=== PATIENT | female | born 1965 | race African-American/Black ===

== ENCOUNTER 2018-06-26 18:51 | Emergency (ER) | payer OTHER ==
[2018-06-26] MEDS ORDERED: ASPIRIN PO ONE (19:30)
[2018-06-26 20:19] LABS: Mucus,Urine 3+ /HPF
[2018-06-26 20:26] LABS: Basophils # (Auto) 0.1 K/mm3 (0.0-0.1); Basophils % (Auto) 0.9 % (0.0-1.8); Eosinophils # (Auto) 0.1 K/mm3 (0.0-0.4); Eosinophils % (Auto) 1.8 % (0.0-4.3); Hemoglobin 14.1 gm/dl (10.1-14.3); Lymphocytes % (Auto) 26.6 % (13.4-35.0); Mean Corpuscular HGB Conc 33 % (30-34); Mean Corpuscular Hemoglobin 29 pg (28-32); Mean Corpuscular Volume 90 fl (79-97); Monocytes # (Auto) 0.5 K/mm3 (0.0-0.8); Monocytes % (Auto) 6.8 % (0.0-7.3); Platelet Count 335 K/mm3 (140-440); Red Blood Count 4.78 M/mm3 (3.65-5.03); Red Cell Distribution Width 14.4 % (13.2-15.2)
[2018-06-26 20:41] LABS: BUN/Creatinine Ratio 38; Blood Urea Nitrogen 19 mg/dL (7-17); Hemolysis Index 32
[2018-06-26 20:43] LABS: Color,Urine Yellow (Yellow)
[2018-06-26 20:44] LABS: Bilirubin,Urine Negative (Negative); Blood,Urine Small (Negative); Urobilinogen,Urine < 2.0 mg/dL (<2.0)
--- NOTE | 2018-06-26 20:54 | XRay Report ---
FINAL REPORT PROCEDURE: XR CHEST ROUTINE 2V TECHNIQUE: PA and lateral chest radiographs were obtained. CPT 22603 HISTORY: SOB COMPARISON: No prior studies are available for comparison. FINDINGS: Heart: Normal. Mediastinum/Vessels: Normal. Lungs/Pleural space: Normal. Bony thorax: No acute osseous abnormality. Other: IMPRESSION: Normal examination.
[2018-06-27] MEDS ORDERED: BENADRYL PO ONE ×2 (01:53→04:37)
[2018-06-27] MEDS ORDERED: DUONEB *Not for PRN Use IH ONE (02:36)
[2018-06-27] MEDS ORDERED: HumuLIN R SUB-Q ONE (04:03)
[2018-06-27] MEDS ORDERED: PEPCID PO ONE (04:48)
[2018-06-27] MEDS ORDERED: DELTASONE PO ONE (04:48)
[2018-06-27 05:10] VITALS: BP 131/62
--- NOTE | 2018-06-27 05:38 | Emergency Department Report ---
ED General Adult HPI - General Chief complaint: Chest Pain Stated complaint: CHEST PAIN/SOB Time Seen by Provider: 06/27/18 02:35 Source: patient Mode of arrival: Ambulatory Limitations: No Limitations - History of Present Illness Initial comments: Pt presents with 4 months of chest pain that was across her whole chest. It is constant. Associated with a dry cough. Difficulty breathing when she lies flat. Bilateral leg swelling. Sometimes she can hear herself wheezing. Nonsmoker. Never has had heart problems before. Patient also has pretty bad seasonal allergies. She is currently taking Claritin. She itches when she goes to sleep at night and routinely takes 25-50 mg Benadryl. Her biggest concern today is her eyes. For the past year she has had intermittent blurry vision in the left eye. Over the past week, similar to today's event happening in the right eye. It is like she is looking through a log. She saw an eye doctor for her left eye a year ago, but she is not sure what the diagnosis was. Severity scale (0 -10): 7 - Related Data Home Medications Medication Instructions Recorded Confirmed Last Taken Insulin NPH/Regular [Novolin 70/30] 50 unit SQ ACHS 08/10/13 08/10/13 Unknown Lisinopril [Zestril] 20 mg PO QDAY 08/10/13 08/10/13 Unknown metFORMIN [Glucophage] 500 mg PO BID 08/10/13 08/10/13 Unknown Previous Rx's Medication Instructions Recorded Last Taken Type Butalb/Acetamin/Caff 50-325-40 1 each PO Q4H PRN #14 tablet 08/10/13 Unknown Rx [Fioricet] predniSONE [Deltasone] 40 mg PO QDAY #8 tab 06/27/18 Unknown Rx Allergies Allergy/AdvReac Type Severity Reaction Status Date / Time No Known Allergies Allergy Unverified 08/10/13 13:44 ED Review of Systems ROS: Stated complaint: CHEST PAIN/SOB Other details as noted in HPI Comment: All other systems reviewed and negative Eyes: vision change ENT: congestion Respiratory: cough, orthopnea, wheezing Cardiovascular: edema ED Past Medical Hx - Past Medical History Previous Medical History?: Yes Hx Hypertension: Yes Hx Diabetes: Yes - Surgical History Past Surgical History?: Yes Additional Surgical History: - Social History Smoking Status: Never Smoker Substance Use Type: None - Medications Home Medications: Home Medications Medication Instructions Recorded Confirmed Last Taken Type Butalb/Acetamin/Caff 50-325-40 1 each PO Q4H PRN #14 tablet 08/10/13 Unknown Rx [Fioricet] Insulin NPH/Regular [Novolin 70/30] 50 unit SQ ACHS 08/10/13 08/10/13 Unknown History Lisinopril [Zestril] 20 mg PO QDAY 08/10/13 08/10/13 Unknown History metFORMIN [Glucophage] 500 mg PO BID 08/10/13 08/10/13 Unknown History predniSONE [Deltasone] 40 mg PO QDAY #8 tab 06/27/18 Unknown Rx ED Physical Exam - General Limitations: No Limitations General appearance: alert, in no apparent distress - Head Head exam: Present: atraumatic, normocephalic - Eye Eye exam: Present: normal appearance, PERRL, EOMI Pupils: Present: normal accommodation - ENT ENT exam: Present: normal orophraynx, mucous membranes moist - Neck Neck exam: Present: normal inspection - Respiratory Respiratory exam: Present: normal lung sounds bilaterally. Absent: respiratory distress - Cardiovascular Cardiovascular Exam: Present: regular rate, normal rhythm, JVD. Absent: systolic murmur, diastolic murmur, rubs, gallop - GI/Abdominal GI/Abdominal exam: Present: soft, normal bowel sounds. Absent: distended, tenderness, guarding, rebound - Extremities Exam Extremities exam: Present: normal inspection, pedal edema (1+ bilateral) - Back Exam Back exam: Present: normal inspection - Neurological Exam Neurological exam: Present: alert, oriented X3 - Psychiatric Psychiatric exam: Present: normal affect, normal mood - Skin Skin exam: Present: warm, dry, intact, normal color. Absent: rash ED Course Vital Signs 06/26/18 06/27/18 06/27/18 19:17 04:36 05:08 Temperature 98.5 F Pulse Rate 109 H 99 H Respiratory 20 20 20 Rate Blood Pressure 168/84 Blood Pressure 131/62 [Right] O2 Sat by Pulse 90 98 99 Oximetry ED Medical Decision Making - Lab Data Result diagrams: 06/26/18 20:11 06/26/18 20:11 - EKG Data -: EKG Interpreted by [facility] EKG shows normal: sinus rhythm, axis, intervals, QRS complexes, ST-T waves Rate: tachycardia - EKG Data Interpretation: no acute changes - Radiology Data Radiology results: report reviewed, image reviewed - Medical Decision Making 53 yo female with past medical history diabetes, hypertension, obesity presents to the ER with multiple complaints. Vital signs initially significant for a heart rate of 109. This improved without intervention. Her main concern are her eyes. Will consider for emergent pathology given the chronic nature of symptoms and eyes. Visual acuity was tested. Patient is able to see 20/50 in both eyes. No prior for comparison. The patient is to see an finisher screwdown for further evaluation of her vision. It is possible that her poorly controlled diabetes have contributed to this problem. EKG is nonischemic 1 and troponin is negative 3. Low suspicion for ACS. Chest x-ray shows no acute process. She is given a DuoNeb with mild improvement of symptoms. Blood glucose came back at 357. No evidence of DKA. She received 10 units subcutaneous insulin. I believe the patient's itching and congestion could be related to seasonal allergies. I will start her on a 5 day course of prednisone and flonase. I am unsure the exact etiology of the patient's blurry eyes. She'll follow up with eye doctor for further evaluation of this. Glucose is elevated at 357. Patient says that she has not been able to afford her usual insulin because she lost her insurance. However, she does have insurance again. Also to follow-up with her family doctor for further regulation of her blood sugar. Her dry cough, orthopnea, and bilateral leg swelling could be related to early signs of congestive heart failure. I do not think that she requires emergent admission for further workup of this. I have recommended that her family doctor start the workup, which likely will include an echo. Low suspicion for PE given non-acute timeline of symptoms, other dx more likely. - Differential Diagnosis ACS, pneumonia, pneumothorax, esophageal rupture, malignancy Critical care attestation.: If time is entered above; I have spent that time in minutes in the direct care of this critically ill patient, excluding procedure time. ED Disposition Clinical Impression: Hyperglycemia due to type 2 diabetes mellitus, Atypical chest pain, Seasonal allergies, Blurry vision, bilateral Disposition: DC-01 TO HOME OR SELFCARE Is pt being admited?: No Condition: Stable Instructions: Chest Pain (ED), Diabetes Mellitus Type 2 in Adults (ED) Additional Instructions: Start taking a daily flonase with your claritin and steroids to help with your allergies. Follow up with the eye doctor to have your vision checked. See your family doctor to have your blood sugar managed and your chest pain re-checked. Also, discuss with him/her if a cardiac ultrasound is useful to help look into your bilateral leg swelling. Prescriptions: predniSONE [Deltasone] 40 mg PO QDAY #8 tab Referrals: PRIMARY CARE, [Primary Care Provider] - 3-5 Days ANTONIO SANTAMARIA MD [Staff Physician] - 3-5 Days FREDDY TAVARES MD [Staff Physician] - 3-5 Days
== END 2018-06-27 09:44 | disposition home or self-care (01) ==
LOC: ED 18:51
DX: J30.2 Other seasonal allergic rhinitis (principal); E11.65 Type 2 diabetes mellitus with hyperglycemia; I10 Essential (primary) hypertension; H53.8 Other visual disturbances; R07.89 Other chest pain; Z79.4 Long term (current) use of insulin
CPT/HCPCS: 36415; 71046; 80048; 81001; 82962; 83880; 84484; 85025; 93005; 93010; 94640; 96372; J1815